=== PATIENT | female | born 1950 | race Caucasian/White ===

== ENCOUNTER → 2019-06-27 18:22 | Outpatient (ROUT) | payer OTHER, SELFPAY ==
[2019-06-27 20:22] LABS: Urine N gonorrhoeae NOT DETECTED
[2019-06-27 20:55] LABS: Urine Chlamydia NOT DETECTED
== END ==
PROVIDERS: PCP Physician Assistant; Visit Provider Internal Medicine
DX: Z11.3 Encounter for screening for infections with a predominantly sexual mode of transmission (principal)
CPT/HCPCS: 87491; 87591

== ENCOUNTER → 2020-03-26 15:20 | Outpatient (CLI) | payer OTHER, SELFPAY ==
--- NOTE | 2020-03-26 | DI.RAD.S_ITS ---
PROCEDURE: XR HAND LT MIN 3V INDICATIONS: JOINT PAIN TECHNIQUE: 3 views of the hand(s) acquired. COMPARISON: None. FINDINGS: Bones: No fractures or dislocations and there is only a mild degree of narrowing of the distal interphalangeal joint spaces. No joint erosions are found. Carpal bones are normally aligned. No suspicious bony lesions. Moderate osteoarthritis of the first carpal-metacarpal joint with mild subluxation laterally. Soft tissues: No suspicious soft tissue calcifications. IMPRESSION: Mild degenerative osteoarthritis, no sign of erosive arthritis or prior trauma. Note is made of moderate osteoarthritis also at the base of the first metacarpal where mild subluxation laterally is associated. Dictated by: Alf Gutierrez M.D. on 03/26/2020 at 16:53 Approved by: Alf Gutierrez M.D. on 03/26/2020 at 16:54
--- NOTE | 2020-03-26 | DI.RAD.S_ITS ---
PROCEDURE: XR HAND RT MIN 3V INDICATIONS: JOINT PAIN TECHNIQUE: 3 views of the hand(s) acquired. COMPARISON: [facility], CR, XR HAND LT MIN 3V, 03/26/2020, 14:23. FINDINGS: Bones: No fractures or dislocations mild osteoarthritis at the interphalangeal joints. Moderate osteoarthritis at the base of the first metacarpal which is subluxed mildly laterally.. Carpal bones are normally aligned. No suspicious bony lesions. Soft tissues: No suspicious soft tissue calcifications. IMPRESSION: No erosive arthritis. Mild degenerative osteoarthritis at the distal interphalangeal joints, moderate degenerative change at the base of the first metacarpal. Dictated by: Alf Gutierrez M.D. on 03/26/2020 at 16:54 Approved by: Alf Gutierrez M.D. on 03/26/2020 at 16:54
== END ==
PROVIDERS: PCP Internal Medicine; Referring Provider Internal Medicine; Visit Provider Internal Medicine
DX: M25.542 Pain in joints of left hand (principal); M25.541 Pain in joints of right hand; M19.042 Primary osteoarthritis, left hand; M19.041 Primary osteoarthritis, right hand
CPT/HCPCS: 73130

== ENCOUNTER → 2022-04-06 10:43 | Outpatient (CLI) | payer OTHER, SELFPAY ==
--- NOTE | 2022-04-06 10:46 | DI.RAD.S_ITS ---
PROCEDURE: XR HAND RT MIN 3V INDICATIONS: BILATERAL HAND PAIN TECHNIQUE: 3 views of the hand acquired. COMPARISON: [facility], CR, XR HAND RT MIN 3V, 03/26/2020, 14:25. FINDINGS: Bones: No acute fractures or dislocations. Carpal bones are normally aligned. No suspicious bony lesions. Severe joint space narrowing seen at the 1st carpometacarpal joint with subchondral cystic changes. Mild scattered degenerative changes are seen throughout the interphalangeal joints of the thumb and fingers. Soft tissues: No suspicious soft tissue calcifications. IMPRESSION: Severe degenerative osteoarthrosis of the 1st carpometacarpal joint and mild scattered degenerative changes throughout the fingers. No radiographic signs of an inflammatory arthritis. Dictated by: Refugio Olguin M.D. on 04/06/2022 at 12:38 Approved by: Refugio Olguin M.D. on 04/06/2022 at 12:40
--- NOTE | 2022-04-06 10:46 | DI.RAD.S_ITS ---
PROCEDURE: XR HAND LT MIN 3V INDICATIONS: BILATERAL HAND PAIN TECHNIQUE: 3 views of the hand acquired. COMPARISON: [facility], CR, XR HAND RT MIN 3V, 03/26/2020, 14:25. [facility], CR, XR HAND LT MIN 3V, 03/26/2020, 14:23. FINDINGS: Bones: No acute fractures or dislocations. Carpal bones are normally aligned. No suspicious bony lesions. Moderate to severe joint space narrowing at the 1st carpometacarpal joint with subchondral sclerosis. Mild degenerative changes are seen in the 1st interphalangeal joint. Mild scattered degenerative changes at the interphalangeal joints of the fingers. No osseous erosion. No abnormal subluxations. Soft tissues: No suspicious soft tissue calcifications. No focal soft tissue edema. IMPRESSION: Moderate to severe osteoarthrosis at the 1st carpometacarpal joint. No definite radiographic signs of an inflammatory arthritis. Dictated by: Refugio Olguin M.D. on 04/06/2022 at 12:35 Approved by: Refugio Olguin M.D. on 04/06/2022 at 12:38
== END ==
PROVIDERS: PCP Internal Medicine; Referring Provider Internal Medicine; Visit Provider Internal Medicine
DX: M18.0 Bilateral primary osteoarthritis of first carpometacarpal joints (principal); M79.642 Pain in left hand; M79.641 Pain in right hand
CPT/HCPCS: 73130